=== PATIENT | female | born 1960 | race Caucasian/White ===

== ENCOUNTER 2018-04-29 00:54 | Observation (INO) ==
[2018-04-29] MEDS ORDERED: ASPIRIN 81 MG TAB.CHEW PO ONE (01:04)
[2018-04-29] MEDS ORDERED: NITROGLYCERIN 0.4 MG/TAB BTL SL ONE ×2 (01:22→02:09)
--- NOTE | 2018-04-29 01:24 | ERNOTE ---
Chest Pain/Cardiac HPI Date of Service: 04/29/18 Chief Complaint: Chest Pain Time Seen by Provider: 04/29/18 01:50 Source: patient Exam Limitations: clinical condition Immunizations: IMMUNIZATION HX Immunizations Up to Date Yes History of Influenza Vaccine Yes Hx Pneumococcal Vaccination More Information Required Allergies/Adverse Reactions: Allergies amoxicillin trihydrate [From Augmentin] Allergy (Intermediate, Verified 04/29/18 01:09) Itching potassium clavula *RETIRED-10/29/12 [From Augmentin] Allergy (Intermediate, Verified 04/29/18 01:09) Itching Home Medications: HOME MEDICATIONS Clopidogrel Bisulfate [Plavix] 75 mg PO DAILY 05/11/12 [Last Taken 04/28/18] HYDROcodone/ACETAMINOPHEN [[place] 5-325] 325 mg PO QID 05/11/12 [Last Taken 04/28/18 18:00] Atorvastatin Calcium [Lipitor] 80 mg PO HS 04/29/18 [Last Taken 04/28/18 21:00] Baclofen 10 mg PO TID 04/29/18 [Last Taken 04/28/18] Furosemide [Lasix] 20 mg PO DAILY 04/29/18 [Last Taken 04/28/18 08:00] Gabapentin 100 mg PO TID 04/29/18 [Last Taken 04/28/18] Lisinopril [Zestril] 2.5 mg PO DAILY 04/29/18 [Last Taken 04/28/18 08:00] Zolpidem Tartrate [Ambien] 12.5 mg PO HS 04/29/18 [Last Taken 04/28/18 21:00] metFORMIN HCL [Metformin HCl] 500 mg PO QID 04/29/18 [Last Taken 04/28/18] Narrative: 58 year old female presenting with chest pain, she does have a history of CAD she has had stents in [place]. States that she has 8/10 pain, diffusely across her chest, she is wheezy and tight. We administered Aspirin and Nitro. Date (Duration): 04/29/18 Time (Timing): 01:40 Timing: constant Severity/Quality: mild Location: substernal Chest Pain Radiation: no radiation Activities at Onset: none Modifying Factors - Worsens: Present: rest Nitro Today/Relief: 0.4 mg x 1 Aspirin Treatment Today: 81 mg x 1 Associated Symptoms: Present: denies symptoms Prior Chest Pain/Cardiac Workup: Reports: prior chest pain Prior Treatment: Denies: recently seen Review of Systems - Review of Systems Constitutional: Present: See HPI EYE: Present: no symptoms reported ENT: Present: no symptoms reported Respiratory: Present: shortness of breath, cough, wheezing Cardiology: Present: chest pain. Absent: syncope Gastrointestinal/Abdominal: Present: no symptoms reported Genitourinary: Present: no symptoms reported Musculoskeletal: Present: no symptoms reported Skin: Present: no symptoms reported Neurological: Present: no symptoms reported Endocrine: Present: no symptoms reported Hematologic/Lymphatic: Present: no symptoms reported Medical History (Last Reviewed 04/29/18 @ 01:52 by Daniella Simmons MD) History of COPD History of asthma History of heart attack History of high cholesterol History of hypertension History of type 2 diabetes mellitus Surgical History: Surgical History (Last Reviewed 04/29/18 @ 01:52 by Daniella Simmons MD) H/O heart artery stent Family History: Family History (Last Reviewed 04/29/18 @ 01:52 by Daniella Simmons MD) Brother Heart disease Social History: Preferred Language Argentine Do you have any mandaeism or No cultural preference? Smoking Status Current every day smoker Have you smoked in the past 12 Yes months Alcohol Use none Drug Use none No Social History Section defined Physical Exam - Physical Exam General Appearance: Present: wd/wn, alert, no apparent distress Head Exam: Present: normal inspection, no evidence of injury Eye Exam: Normal inspection: bilateral, PERRL: bilateral, EOMI: bilateral Ears, Nose, Throat: Present: normal ENT inspection, normal pharynx Neck: Present: normal inspection, nontender Respiratory: Present: chest nontender, decreased breath sounds, wheezing Cardiovascular/Chest: Present: regular rate, rhythm, no murmur, normal peripheral pulses Gastrointestinal/Abdominal: Present: normal bowel sounds, nontender, nondistended, soft, no organomegaly Back Exam: Present: normal inspection, normal range of motion, no CVA tenderness, no vertebral tenderness Extremity Exam: Present: normal inspection, non-tender, normal range of motion, no edema Neurological Exam: Present: alert, oriented, normal mood/affect, no motor/sensory deficits Skin Exam: Present: normal color, warm/dry Lymphatic Exam: Present: no adenopathy Progress - Results and Orders Patient's Lab Results:: I have reviewed the patient's lab results. - Vital Signs Patient's Vital Signs:: I have reviewed the patient's vital signs. Vital Signs: Vital Signs 04/29/18 01:06 04/29/18 01:19 04/29/18 01:20 Temperature 36.8 C Pulse Rate 115 H 109 H 115 H Respiratory Rate 14 19 Blood Pressure 127/64 112/56 O2 Sat by Pulse Oximetry 97 97 - EKG EKG #1 EKG: NSR, other EKG read: Interp. by mn - Sinus tachycardia rate of [address] or T wave changes, compared with old EKG - X-Ray X-Ray #1 X-Ray: chest - no acute change - Progress/Reassessment Chief Complaint: Chest Pain Plan - Plan Plan: patient continues to have mild pain in chest, discussed with Dr. Fritz, will admit for chest pain obs. Her COPD is not at baseline, I suspect her chest pain is worsened by her COPD. Will order nebs, and recheck troponin. CXR and EKG are negative for acute disease. Departure Clinical Impression: Chest pain - Departure Disposition: Still a patient Condition: Fair
[2018-04-29 01:34] LABS: Hematocrit 34.8 % (37.0-47.0); Hemoglobin 11.5 gm/dL (12.5-16.0); Mean Cell Volume 87.2 fl (78-100); Mean Corpuscular Hemoglobin 28.8 pg (27-31); Mean Platelet Volume 9.7 fl (8-12.5); Neutrophil # 4.2 K/mm3 (1.3-6.0); Neutrophil % 61.4 % (42-75.0); Platelet Count 241 K/mm3 (150-450); Red Blood Count 3.99 M/mm3 (4.2-5.4); Red Cell Distribution Width 13.2 % (11.5-14.0); White Blood Count 6.8 K/mm3 (4.0-10.5)
[2018-04-29] MEDS ORDERED: ALBUTEROL SULFATE/IPRATROPIUM 3 ML NEBU IH ONE ×2 (01:46→01:47)
[2018-04-29] MEDS ORDERED: METHYLPREDNISOLONE SOD SUCC/PF 40 MG/ML VIAL IV ONE (01:46)
[2018-04-29 01:56] LABS: ALT 31 U/L (19-67); AST 28 U/L (0-48); Albumin * 3.7 gm/dl (3.4-5.0); Alkaline Phosphatase * 82 U/L (50-170); Anion Gap 17.7 mmol/L (6.8-13.8); BUN/Creatinine Ratio 17.7 (9.0-21.6); Bilirubin, Total 0.2 mg/dL (0.0-1.1); Blood Urea Nitrogen 23 mg/dL (3-23); Calcium * 9.1 mg/dL (7.9-10.9); Carbon Dioxide 21.9 mmol/L (24-32.6); Chloride 102 mmol/L (97-106); Glucose * 355 mg/dL (70-110); Potassium 3.6 mmol/L (3.4-4.6); Sodium 138 mmol/L (132-142); Total Protein 7.2 gm/dL (6.2-8.2); Troponin I Less than 0.017 ng/mL (0.00-0.10)
[2018-04-29] MEDS ORDERED: MORPHINE SULFATE 10 MG/ML SYRG IM ONE (02:12)
[2018-04-29] MEDS ORDERED: METHYLPREDNISOLONE SOD SUCC/PF 40 MG/ML VIAL IM ONE (02:21)
[2018-04-29] MEDS ORDERED: METHYLPREDNISOLONE SOD SUCC/PF 125 MG/2 ML VIAL IM ONE (02:27)
[2018-04-29] MEDS ORDERED: ONDANSETRON HCL/PF 2 MG/ML VIAL IV ONE (03:25)
[2018-04-29] MEDS ORDERED: MORPHINE SULFATE 4 MG/ML SYRG IV ONE ×2 (03:32→05:31)
[2018-04-29] MEDS ORDERED: ALBUTEROL SULFATE/IPRATROPIUM 3 ML NEBU IH PRN (03:46)
[2018-04-29] MEDS ORDERED: diphenhydrAMINE HCL 50 MG CAPSULE PO PRN (05:31)
[2018-04-29] MEDS ORDERED: KETOROLAC TROMETHAMINE 30 MG/ML VIAL IV ONE (08:08)
[2018-04-29] MEDS ORDERED: BACLOFEN 10 MG TABLET PO SCH (10:10)
[2018-04-29] MEDS ORDERED: FUROSEMIDE 20 MG TABLET PO SCH (10:15)
[2018-04-29] MEDS ORDERED: CLOPIDOGREL BISULFATE 75 MG TABLET PO SCH (10:15)
[2018-04-29] MEDS ORDERED: LISINOPRIL 2.5 MG TABLET PO SCH (10:15)
--- NOTE | 2018-04-29 11:15 | HP ---
Chief Complaint - Chief Complaint Date of Service: 04/29/18 Time of Service: 10:30 Chief Complaint: Chest Pain History of Present Illness: Kalli is a 58 yo female that presents to the [facility] ER with chest pain. She has a history of CAD. She reports no precipitating cause to chest pain. She was not doing any physical activity at the time of symptoms. She presented to the ER and initial work up is negative for acute [place]. Troponin and EKG are within normal limits. Chest pain was not responsive to nitro or morphine. Medical History (Last Reviewed 04/29/18 @ 04:08 by Natalie Moreland RN) History of COPD History of asthma History of heart attack History of high cholesterol History of hypertension History of type 2 diabetes mellitus Surgical History: Surgical History (Last Updated 04/29/18 @ 04:08 by Natalie Moreland RN) H/O heart artery stent History of back surgery Family History: Family History (Last Reviewed 04/29/18 @ 04:08 by Natalie Moreland RN) Brother Heart disease Social History: Patient Lives/Resources Home Utilized Occupation Disabled Preferred Language Hebrew Do you have any protestant or No cultural preference? Smoking Status Current every day smoker Have you smoked in the past 12 Yes months Do you dip or chew tobacco No Alcohol Use none Drug Use none No Social History Section defined Review Of Systems (GEN) - Review of Systems Generalized/Overall Review: Absent: Weakness, Chills, Fever EENTM: Present: No Symptoms Reported Respiratory: Present: Cough, Shortness of Breath Cardiac: Present: Chest Pain. Absent: Edema, Palpitations Abdominal: Absent: Nausea, Vomiting, Abdominal Pain Genitourinary: Present: No Symptoms Reported Musculoskeletal: Present: No Symptoms Reported Neurological: Present: No Symptoms Reported Skin: Present: No Symptoms Reported Endocrine: Present: No Symptoms Reported Immunizations: IMMUNIZATION HX Immunizations Up to Date Yes History of Influenza Vaccine Yes Hx Pneumococcal Vaccination More Information Required Allergies/Adverse Reactions: Allergies Allergy/AdvReac Type Severity Reaction Status Date / Time amoxicillin trihydrate Allergy Intermediate Itching Verified 04/29/18 01:09 [From Augmentin] potassium clavula Allergy Intermediate Itching Verified 04/29/18 01:09 *RETIRED-10/29/12 [From Augmentin] Home Medications: HOME MEDICATIONS Clopidogrel Bisulfate [Plavix] 75 mg PO DAILY 05/11/12 [Last Taken 04/28/18] HYDROcodone/ACETAMINOPHEN [[place] 5-325] 325 mg PO QID 05/11/12 [Last Taken Unknown] Atorvastatin Calcium [Lipitor] 80 mg PO HS 04/29/18 [Last Taken 04/28/18 21:00] Baclofen 10 mg PO TID 04/29/18 [Last Taken 04/28/18] Furosemide [Lasix] 20 mg PO DAILY 04/29/18 [Last Taken 04/28/18 08:00] Gabapentin 100 mg PO TID 04/29/18 [Last Taken 04/28/18] Lisinopril [Zestril] 2.5 mg PO DAILY 04/29/18 [Last Taken 04/28/18 08:00] Zolpidem Tartrate [Ambien] 12.5 mg PO HS 04/29/18 [Last Taken 04/28/18 21:00] metFORMIN HCL [Metformin HCl] 500 mg PO QID 04/29/18 [Last Taken 04/28/18] predniSONE [Prednisone] 2 tab PO DAILY #14 tab 04/29/18 [Last Taken Unknown] Exam - Exam Vital Signs: Vital Signs - Last Taken Temp 36.8 C 04/29/18 10:14 Pulse 106 H 04/29/18 11:13 Resp 18 04/29/18 10:14 BP 100/58 04/29/18 11:13 Pulse Ox 94 04/29/18 10:14 Constitutional: Present: Alert, Oriented x3, Cooperative ENT Exam: Present: hearing grossly normal Eye Exam: bilateral eye: normal inspection Respiratory: Present: wheezing Cardiovascular/Chest: Present: regular rate, rhythm, no murmur Abdomen: Present: Normal bowel sounds, soft, nontender, nondistended, no rebound tenderness, no hepatospenomegaly Skin Exam: Present: normal color, warm/dry, no cyanosis Lymphatic: Present: no adenopathy Appearance: Present: appropriate appearance, appropriate insight Eye contact: Present: cooperative, good eye contact, normal speech Thoughts: Present: normal thought pattern, no apparent hallucination Diagnostic Studies: Abnormal Lab Results 04/29/18 04/29/18 Range/Units 01:30 01:30 RBC 3.99 L (4.2-5.4) M/mm3 Hgb 11.5 L (12.5-16.0) gm/dL Hct 34.8 L (37.0-47.0) % Carbon Dioxide 21.9 L (24-32.6) mmol/L Anion Gap 17.7 H (6.8-13.8) mmol/L Est GFR (Non-Af Amer) 45 L (60-130) mL/min Random Glucose 355 H (70-110) mg/dL Laboratory Results WBC 6.8 K/mm3 (4.0-10.5) 04/29/18 01:30 RBC 3.99 M/mm3 (4.2-5.4) L 04/29/18 01:30 Hgb 11.5 gm/dL (12.5-16.0) L 04/29/18 01:30 Hct 34.8 % (37.0-47.0) L 04/29/18 01:30 MCV 87.2 fl (78-100) 04/29/18 01:30 MCH 28.8 pg (27-31) 04/29/18 01:30 MCHC 33.0 g/dl (32-36) 04/29/18 01:30 RDW 13.2 % (11.5-14.0) 04/29/18 01:30 Plt Count 241 K/mm3 (150-450) 04/29/18 01:30 MPV 9.7 fl (8-12.5) 04/29/18 01:30 Immature Gran % (Auto) 0.10 % (0.001-0.429) 04/29/18 01:30 Immature Gran # (Auto) 0.01 K/mm3 (0.000-0.0310) 04/29/18 01:30 Neutrophils % 61.4 % (42-75.0) 04/29/18 01:30 Lymphocytes % 29.5 % (20-51) 04/29/18 01:30 Monocytes % 5.9 % (0.0-9) 04/29/18 01:30 Eosinophils % 2.5 % (0.0-3.0) 04/29/18 01:30 Basophils % 0.6 % (0.0-1.0) 04/29/18 01:30 Nucleated RBC % 0.0 k/mm3 (0-1) 04/29/18 01:30 Neutrophils # 4.2 K/mm3 (1.3-6.0) 04/29/18 01:30 Lymphocytes # 2.01 k/mm3 (1.5-3.5) 04/29/18 01:30 Monocytes # 0.4 k/mm3 (0.0-1.0) 04/29/18 01:30 Eosinophils # 0.2 k/mm3 (0.0-0.7) 04/29/18 01:30 Absolute Basophils 0.0 k/mm3 (0.0-0.1) 04/29/18 01:30 D-Dimer 0.44 ug/mL (0.19-0.49) 04/29/18 01:30 Sodium 138 mmol/L (132-142) 04/29/18 01:30 Plasma Sodium 142 mmol/L (130-142) 04/29/18 01:30 Potassium 3.6 mmol/L (3.4-4.6) 04/29/18 01:30 Chloride 102 mmol/L (97-106) 04/29/18 01:30 Carbon Dioxide 21.9 mmol/L (24-32.6) L 04/29/18 01:30 Anion Gap 17.7 mmol/L (6.8-13.8) H 04/29/18 01:30 BUN 23 mg/dL (3-23) 04/29/18 01:30 Creatinine 1.30 mg/dL (0.4-1.4) 04/29/18 01:30 Est GFR (Non-Af Amer) 45 mL/min (60-130) L 04/29/18 01:30 BUN/Creatinine Ratio 17.7 (9.0-21.6) 04/29/18 01:30 Random Glucose 355 mg/dL (70-110) H 04/29/18 01:30 Calcium 9.1 mg/dL (7.9-10.9) 04/29/18 01:30 Calcium Adj for Albumin 9.0 mg/dL (8.4-10.2) 04/29/18 01:30 Total Bilirubin 0.2 mg/dL (0.0-1.1) 04/29/18 01:30 AST 28 U/L (0-48) 04/29/18 01:30 ALT 31 U/L (19-67) 04/29/18 01:30 Alkaline Phosphatase 82 U/L (50-170) 04/29/18 01:30 Troponin I Less than 0.017 ng/mL (0.00-0.10) 04/29/18 07:28 B-Natriuretic Peptide 34 pg/mL (5-205) 04/29/18 02:00 Total Protein 7.2 gm/dL (6.2-8.2) 04/29/18 01:30 Albumin 3.7 gm/dl (3.4-5.0) 04/29/18 01:30 Assessment/Plan - Narrative Narrative: Kalli is a 58 yo female with Chest pain. Will admit to observation. Will place on telemetry and repeat serial troponins. Plan to discharge later today. - Assessment/Plan (1) Chest pain Problem: Acute Qualifiers: Chest pain type: unspecified Qualified Code(s): R07.9 - Chest pain, unsp ecified (2) CAD (coronary artery disease) Problem: Chronic Qualifiers: Coronary Disease-Associated Artery/Lesion type: unspecified vessel or lesion type [place] vs. transplanted heart: [place] heart Associated angina: without angina Qualified Code(s): I25.10 - Atherosclerotic heart disease of [place] coronary artery without angina pectoris (3) COPD (chronic obstructive pulmonary disease) Problem: Chronic Qualifiers: Chronic bronchitis type: unspecified
--- NOTE | 2018-04-29 11:29 | DS ---
(1) Chest pain Problem: Acute Qualifiers: Chest pain type: unspecified Qualified Code(s): R07.9 - Chest pain, unspecified (2) DMII (diabetes mellitus, type 2) Problem: Acute Qualifiers: Diabetes mellitus superintendent terminal insulin use: without fpc use Diabetes mellitus complication status: with unspecified complications Qualified Code(s): E11.8 - Type 2 diabetes mellitus with unspecified complications (3) CAD (coronary artery disease) Problem: Chronic Qualifiers: Coronary Disease-Associated Artery/Lesion type: unspecified vessel or lesion type [place] vs. transplanted heart: [place] heart Associated angina: without angina Qualified Code(s): I25.10 - Atherosclerotic heart disease of [place] coronary artery without angina pectoris (4) COPD (chronic obstructive pulmonary disease) Problem: Chronic Qualifiers: Chronic bronchitis type: unspecified (5) Asthma Problem: Chronic Qualifiers: Asthma severity: mild Asthma persistence: intermittent Asthma complication type: with acute exacerbation Qualified Code(s): J45.21 - Mild intermittent asthma with (acute) exacerbation (6) Eczema of both hands Problem: Acute Description of Stay: Kalli is a 58 yo female that was admitted with chest pain and a history of CAD, DMII, HTN. Initial work up was negative for acute [place]. She was admitted to observation. There was no evidence of myocardial injury on telemetry, troponins, or EKG. Chest pain was not responsive to nitro or morphine. It seemed to respond better to toradol and breathing treatments. I s uspect that it may be more related to lung inflammation from asthma or COPD. She has no significant shortness of breath or increased productive sputum. I feel she is ok for home discharge. She does have a severe flare of eczema on her hands. She reports this responds well to prednisone. I believe prednisone will also help the lung inflammation, so I will prescribe a burst of prednisone 40mg daily x 7 days. She is ok to be discharged to home. She requests a follow up with her Spring Inspector, Dr. Castillo, at [facility]. Procedures Performed: none Results and Findings: Lab Pending Results 04/29/18 01:30: WBC 6.8, RBC 3.99 L, Hgb 11.5 L, Hct 34.8 L, MCV 87.2, MCH 28.8, MCHC 33.0, RDW 13.2, Plt Count 241, MPV 9.7, Immature Gran % (Auto) 0.10, Immature Gran # (Auto) 0.01, Neutrophils % 61.4, Lymphocytes % 29.5, Monocytes % 5.9, Eosinophils % 2.5, Basophils % 0.6, Nucleated RBC % 0.0, Neutrophils # 4.2, Lymphocytes # 2.01, Monocytes # 0.4, Eosinophils # 0.2, Absolute Basophils 0.0 04/29/18 01:30: Sodium 138, Plasma Sodium 142, Potassium 3.6, Chloride 102, Carbon Dioxide 21.9 L, Anion Gap 17.7 H, BUN 23, Creatinine 1.30, Est GFR (Non- Af Amer) 45 L, BUN/Creatinine Ratio 17.7, Random Glucose 355 H, Calcium 9.1, Calcium Adj for Albumin 9.0, Total Bilirubin 0.2, AST 28, ALT 31, Alkaline Phosphatase 82, Troponin I Less than 0.017, Total Protein 7.2, Albumin 3.7 04/29/18 01:30: D-Dimer 0.44 04/29/18 02:00: B-Natriuretic Peptide 34 04/29/18 07:28: Troponin I Less than 0.017 Discharge Location: Home Disposition: Home self-care Condition: Good Discharge Activity: Activity as tolerated Discharge Diet: Consistent carbs, Low fat/chol Referrals: Zeus Castillo MD [Non Staff Physicians] - (Next available) Problem Oriented Discharge Instructions to Patient/Family: Chest Pain Observation Prescriptions (Any new or edited meds): predniSONE [Prednisone] 2 tab PO DAILY #14 tab Complete Home Medications List: Complete Home Medication List: Clopidogrel Bisulfate [Plavix] 75 mg PO DAILY 05/11/12 HYDROcodone/ACETAMINOPHEN [[place] 5-325] 325 mg PO QID 05/11/12 Atorvastatin Calcium [Lipitor] 80 mg PO HS 04/29/18 Baclofen 10 mg PO TID 04/29/18 Furosemide [Lasix] 20 mg PO DAILY 04/29/18 Gabapentin 100 mg PO TID 04/29/18 Lisinopril [Zestril] 2.5 mg PO DAILY 04/29/18 Zolpidem Tartrate [Ambien] 12.5 mg PO HS 04/29/18 metFORMIN HCL [Metformin HCl] 500 mg PO QID 04/29/18 predniSONE [Prednisone] 2 tab PO DAILY #14 tab 04/29/18
[2018-04-29] MEDS ORDERED: HYDROcodone/ACETAMINOPHEN 1 EACH TABLET PO ONE (11:30)
[2018-04-29] MEDS ORDERED: GABAPENTIN 100 MG CAPSULE PO SCH (13:00)
[2018-04-29] MEDS ORDERED: HYDROcodone/ACETAMINOPHEN 1 EACH TABLET PO SCH ×2 (13:00→17:00)
[2018-04-29] MEDS ORDERED: metFORMIN HCL 500 MG TABLET PO SCH (13:00)
[2018-04-29 13:55] VITALS: BP 118/78
[2018-04-29] MEDS ORDERED: ZOLPIDEM TARTRATE 10 MG TABLET PO SCH (21:00)
[2018-04-29] MEDS ORDERED: ROSUVASTATIN CALCIUM 20 MG TABLET PO SCH (21:00)
== END 2018-04-29 12:15 | disposition home or self-care (01) ==
LOC: ER 00:54 → MS 00:54
PROVIDERS: ADMIT Family Medicine; ATTEND Family Medicine
CPT/HCPCS: 36415; 71020; 71046; 80053; 83519; 83880; 84484; 85025; 85379; 93005; 94640; 94664; 96372; 96374; 96375; 99285; G0378; J2405

== ENCOUNTER 2019-02-02 18:31 | Observation (INO) ==
[2019-02-02] MEDS ORDERED: ALBUTEROL SULFATE/IPRATROPIUM 3 ML NEBU IH ONE (18:41)
[2019-02-02] MEDS ORDERED: METHYLPREDNISOLONE SOD SUCC/PF 125 MG/2 ML VIAL IV ONE (18:43)
--- NOTE | 2019-02-02 18:52 | ERNOTE ---
Dyspnea - Date Date of Service: 02/02/19 - General Presenting Symptoms: shortness of breath, difficulty of breathing, wheezing Time Seen by Provider: 02/02/19 18:38 Source: patient, family Exam Limitations: no limitations - Immun/Allergies/Home Medications Immunizations: IMMUNIZATION HX Immunizations Up to Date Yes History of Influenza Vaccine Yes Hx Pneumococcal Vaccination More Information Required Allergies/Adverse Reactions: Allergies amoxicillin trihydrate [From Augmentin] Allergy (Intermediate, Verified 02/02/19 18:42) Itching potassium clavula *RETIRED-10/29/12 [From Augmentin] Allergy (Intermediate, Verified 02/02/19 18:42) Itching Home Medications: HOME MEDICATIONS Clopidogrel Bisulfate [Plavix] 75 mg PO DAILY 05/11/12 [Last Taken 04/28/18] HYDROcodone/ACETAMINOPHEN [[place] 5-325] 1 tab PO QID 05/11/12 [Last Taken Unknown] Atorvastatin Calcium [Lipitor] 80 mg PO HS 04/29/18 [Last Taken 04/28/18 21:00] Baclofen 10 mg PO TID 04/29/18 [Last Taken 04/28/18] Furosemide [Lasix] 20 mg PO DAILY 04/29/18 [Last Taken 04/28/18 08:00] Gabapentin 100 mg PO TID 04/29/18 [Last Taken 04/28/18] Lisinopril [Zestril] 2.5 mg PO DAILY 04/29/18 [Last Taken 04/28/18 08:00] metFORMIN HCL [Metformin HCl] 1,000 mg PO QID 04/29/18 [Last Taken 04/28/18] Amitriptyline HCl [Elavil] 10 mg PO HS 02/02/19 [Last Taken Unknown] Insulin Aspart [Novolog] 1 units SC PRN PRN 02/02/19 [Last Taken Unknown] Insulin Glargine,Hum.rec.anlog [Lantus] 16 units SC HS 02/02/19 [Last Taken Unknown] Insulin Glargine,Hum.rec.anlog [Lantus] 43 units SC QAM 02/02/19 [Last Taken Unknown] - History of Present Illness Narrative: patientpresents to ed with acute exacerbation of copd for last several days Severity: severe Treatment FILM WRITER: by patient, albuterol Initiating event: Reports: upper resp illness Frequency of episodes: Reports: frequent episodes, chronic episodes Modifying Factors - (Improves): Reports: albuterol Modifying Factors (Worsens): Reports: coughing Associated Symptoms-Dyspnea: Reports: lightheadedness, weakness Prior Treatment: Reports: recently seen Review of Systems - Review of Systems Constitutional: Present: See HPI EYE: Present: no symptoms reported ENT: Present: no symptoms reported Respiratory: Present: See HPI, shortness of breath, cough Cardiology: Present: no symptoms reported Gastrointestinal/Abdominal: Present: no symptoms reported Genitourinary: Present: no symptoms reported Musculoskeletal: Present: no symptoms reported Skin: Present: no symptoms reported Neurological: Present: no symptoms reported Endocrine: Present: no symptoms reported Medical History (Last Reviewed 02/02/19 @ 18:59 by Dayanna Valente RN) History of COPD History of asthma History of heart attack History of high cholesterol History of hypertension History of type 2 diabetes mellitus Surgical History: Surgical History (Last Reviewed 02/02/19 @ 18:59 by Dayanna Valente RN) H/O heart artery stent History of back surgery Family History: Family History (Last Reviewed 02/02/19 @ 18:59 by Dayanna Valente RN) Brother Heart disease Social History: (Last Reviewed 02/02/19 @ 18:59 by Dayanna Valente RN) Tobacco: Smoking Status: Current every day smoker Physical Exam - Physical Exam General Appearance: Present: moderate distress, severe distress Head Exam: Present: normal inspection, no evidence of injury Ears, Nose, Throat: Present: normal ENT inspection, normal pharynx Neck: Present: normal inspection, nontender Respiratory: Present: chest tenderness, respiratory distress, accessory muscle use Cardiovascular/Chest: Present: tachycardia Peripheral Pulses: N=norm/S=strong/W=weak/B=bound/A=absent: Carotid (R): Normal, Carotid (L): Normal, Radial (R): Normal, Radial (L): Normal, Femoral (R): Normal, Femoral (L): Normal, Dorsalis-pedis (R): Normal, Dorsalis-pedis (L): Normal Gastrointestinal/Abdominal: Present: normal bowel sounds, nontender, nondistended, soft, no organomegaly Back Exam: Present: normal inspection, normal range of motion, no CVA tenderness, no vertebral tenderness Extremity Exam: Present: normal inspection, non-tender, normal range of motion, no edema Neurological Exam: Present: alert, oriented, normal mood/affect, no motor/sensory deficits Skin Exam: Present: normal color, warm/dry Lymphatic Exam: Present: no adenopathy Progress - Date and Time Seen: Date and Time: 02/02/19 20:58 patient improved somewhat , still sob with wheezing, labs and x-rays reviewed with dr elena, accepted for admission - Results and Orders Patient's Lab Results:: I have reviewed the patient's lab results. - Vital Signs Patient's Vital Signs:: I have reviewed the patient's vital signs. Vital Signs: Vital Signs 02/02/19 18:37 Temperature 36.9 C Pulse Rate 126 H Respiratory Rate 28 H Blood Pressure 157/89 H O2 Sat by Pulse Oximetry 95 - EKG EKG #1 EKG: NSR - X-Ray X-Ray #1 X-Ray: chest Interpretation: Interp. by ma - copd - Progress/Reassessment Chief Complaint: Dyspnea Plan - Plan Plan: to admit to observation Departure Clinical Impression: COPD (chronic obstructive pulmonary disease) - Departure Disposition: Still a patient Condition: Serious
[2019-02-02 19:09] LABS: Hematocrit 34.9 % (37.0-47.0); Hemoglobin 11.7 gm/dL (12.5-16.0); Mean Cell Volume 87.5 fl (78-100); Mean Corpuscular Hemoglobin 29.3 pg (27-31); Mean Corpuscular Hgb Conc 33.5 g/dl (32-36); Mean Platelet Volume 9.3 fl (8-12.5); Neutrophil # 7.8 K/mm3 (1.3-6.0); Neutrophil % 72.9 % (42-75.0); Platelet Count 263 K/mm3 (150-450); Red Blood Count 3.99 M/mm3 (4.2-5.4); Red Cell Distribution Width 13.2 % (11.5-14.0); White Blood Count 10.7 K/mm3 (4.0-10.5)
[2019-02-02 19:25] LABS: ALT 40 U/L (19-67); AST 33 U/L (0-48); Alkaline Phosphatase * 97 U/L (50-170); Anion Gap 17.4 mmol/L (6.8-13.8); BNP * 466 pg/mL (5-205); BUN/Creatinine Ratio 9.1 (9.0-21.6); Bilirubin, Total 0.3 mg/dL (0.0-1.1); Blood Urea Nitrogen 11 mg/dL (3-23); Calcium * 9.3 mg/dL (7.9-10.9); Carbon Dioxide 24.5 mmol/L (24-32.6); Chloride 101 mmol/L (97-106); Glucose * 142 mg/dL (70-110); Potassium 3.9 mmol/L (3.4-4.6); Sodium 139 mmol/L (132-142); Total Protein 7.5 gm/dL (6.2-8.2); Troponin I Less than 0.017 ng/mL (0.00-0.10)
[2019-02-02 19:38] LABS: Urine Appearance Clear (CLEAR); Urine Bilirubin Negative (NEGATIVE); Urine Blood Negative /ul (NEGATIVE); Urine Color Yellow; Urine Ketone Negative (NEGATIVE)
[2019-02-02 19:39] LABS: Urine Bacteria None Seen; Urine Nitrite Negative (NEGATIVE); Urine Protein Negative (NEGATIVE); Urine RBC None Seen /hpf (0-5); Urine Urobilinogen Normal (NORMAL); Urine WBC None Seen /hpf (0-5); Urine pH 5.5 pH (5.0-7.0)
[2019-02-02] MEDS ORDERED: ALBUTEROL SULFATE 2.5 MG/0.5 ML VIAL.NEB IH ONE (19:41)
[2019-02-02] MEDS ORDERED: ACETAMINOPHEN 325 MG TABLET PO ONE (20:12)
[2019-02-02] MEDS ORDERED: ONDANSETRON HCL/PF 2 MG/ML VIAL IV ONE (21:06)
[2019-02-02] MEDS ORDERED: ALBUTEROL SULFATE 2.5 MG/0.5 ML VIAL.NEB IH PRN (21:08)
[2019-02-02] MEDS ORDERED: LEVOFLOXACIN IN DEXTROSE 5 % 500 MG/100 ML BAG IV SCH (21:15)
[2019-02-02] MEDS ORDERED: KETOROLAC TROMETHAMINE 30 MG/ML VIAL IV ONE (21:28)
[2019-02-02] MEDS ORDERED: diphenhydrAMINE HCL 50 MG/ML VIAL IV ONE (22:22)
[2019-02-02] MEDS ORDERED: ACETAMINOPHEN 500 MG TABLET PO PRN (23:29)
[2019-02-02] MEDS: HYDROcodone/ACETAMINOPHEN 1 EACH TABLET PO PRN (23:41)
[2019-02-02] MEDS: METHYLPREDNISOLONE SOD SUCC/PF 125 MG/2 ML VIAL IV SCH (23:42)
[2019-02-03] MEDS: HYDROcodone/ACETAMINOPHEN 1 EACH TABLET PO PRN (05:46)
[2019-02-03] MEDS: METHYLPREDNISOLONE SOD SUCC/PF 125 MG/2 ML VIAL IV SCH (05:47)
--- NOTE | 2019-02-03 11:34 | HPDIS ---
Chief Complaint - Chief Complaint Date of Service: 02/03/19 Time of Service: 08:30 Chief Complaint: Shortness of breath History of Present Illness: Kalli is a 58 yo female that presented to the [facility] ER with shortness of breath. She reports gradually worsening shortness of breath over the last few days. No fever, chills, nausea, or vomiting. She has a known history of COPD. She denies sick contacts but admits to environmental allergies. She also gets eczema and has been on prednisone for this periodically, but not recently. In the ER she was given breathing treatments and IV steroids. She was admitted to observation and at the time of my evaluation she reports feeling well and would like to go home. She reports her breathing is near her baseline and she has no concerns at this time. Medical History (Last Reviewed 02/02/19 @ 22:16 by Dominique Root RN) History of COPD History of asthma History of heart attack History of high cholesterol History of hypertension History of type 2 diabetes mellitus Surgical History: Surgical History (Last Reviewed 02/02/19 @ 22:16 by Dominique Root RN) H/O heart artery stent History of back surgery Family History: Family History (Last Reviewed 02/02/19 @ 22:16 by Dominique Root RN) Brother Heart disease Social History: (Last Reviewed 02/02/19 @ 22:16 by Dominique Root RN) Tobacco: Smoking Status: Current every day smoker Review Of Systems (GEN) - Review of Systems Generalized/Overall Review: Absent: Weakness, Chills, Fever EENTM: Absent: No Symptoms Reported Respiratory: Present: Cough, Shortness of Breath, Wheezing Cardiac: Absent: Chest Pain, Edema, Palpitations Abdominal: Absent: Nausea, Vomiting Genitourinary: Present: No Symptoms Reported Musculoskeletal: Present: No Symptoms Reported Neurological: Present: No Symptoms Reported Skin: Present: Rash Immunizations: IMMUNIZATION HX Immunizations Up to Date Yes History of Influenza Vaccine Yes Hx Pneumococcal Vaccination More Information Required Allergies/Adverse Reactions: Allergies Allergy/AdvReac Type Severity Reaction Status Date / Time amoxicillin trihydrate Allergy Intermediate Itching Verified 02/02/19 18:42 [From Augmentin] potassium clavula Allergy Intermediate Itching Verified 02/02/19 18:42 *RETIRED-10/29/12 [From Augmentin] Home Medications: HOME MEDICATIONS Clopidogrel Bisulfate [Plavix] 75 mg PO DAILY 05/11/12 [Last Taken 04/28/18] HYDROcodone/ACETAMINOPHEN [Hydes 5-325] 1 tab PO QID 05/11/12 [Last Taken Unknown] Atorvastatin Calcium [Lipitor] 80 mg PO HS 04/29/18 [Last Taken 04/28/18 21:00] Baclofen 10 mg PO TID 04/29/18 [Last Taken 04/28/18] Furosemide [Lasix] 20 mg PO DAILY 04/29/18 [Last Taken 04/28/18 08:00] Gabapentin 100 mg PO TID 04/29/18 [Last Taken 04/28/18] Lisinopril [Zestril] 2.5 mg PO DAILY 04/29/18 [Last Taken 04/28/18 08:00] metFORMIN HCL [Metformin HCl] 1,000 mg PO BID 04/29/18 [Last Taken 04/28/18] Amitriptyline HCl [Elavil] 10 mg PO HS 02/02/19 [Last Taken Unknown] Insulin Aspart [Novolog] 1 units SC PRN PRN 02/02/19 [Last Taken Unknown] Insulin Glargine,Hum.rec.anlog [Lantus] 16 units SC HS 02/02/19 [Last Taken Unknown] Insulin Glargine,Hum.rec.anlog [Lantus] 43 units SC QAM 02/02/19 [Last Taken Unknown] Azithromycin [Zithromax] 500 mg PO NOW #6 tab 02/03/19 [Last Taken Unknown] predniSONE [Prednisone] 2 tab PO DAILY #14 tab 02/03/19 [Last Taken Unknown] Exam - Exam Vital Signs: Vital Signs - Last Taken Temp 37 C 02/03/19 10:30 Pulse 111 H 02/03/19 10:30 Resp 21 H 02/03/19 10:30 BP 119/79 02/03/19 10:30 Pulse Ox 97 02/03/19 10:30 Constitutional: Present: Alert, Oriented x3, Cooperative ENT Exam: Present: hearing grossly normal Eye Exam: bilateral eye: normal inspection Respiratory: Present: no respiratory distress, wheezing Cardiovascular/Chest: Present: regular rate, rhythm, no edema, no murmur Peripheral Pulses: radial (R): 2+, radial (L): 2+ Abdomen: Present: Normal bowel sounds, soft, nontender, nondistended Skin Exam: Present: skin rash - dry scale to bilateral palms Appearance: Present: appropriate appearance, appropriate insight Eye contact: Present: cooperative, good eye contact, normal speech Thoughts: Present: normal thought pattern, no apparent hallucination Diagnostic Studies: Abnormal Lab Results 02/02/19 02/02/19 02/02/19 Range/Units 18:52 18:52 19:05 WBC 10.7 H (4.0-10.5) K/mm3 RBC 3.99 L (4.2-5.4) M/mm3 Hgb 11.7 L (12.5-16.0) gm/dL Hct 34.9 L (37.0-47.0) % Immature Gran % (Auto) 0.50 H (0.001-0.429) % Immature Gran # (Auto) 0.05 H (0.000-0.0310) K/mm3 Lymphocytes % 18.0 L (20-51) % Neutrophils # 7.8 H (1.3-6.0) K/mm3 pCO2 31.7 L (32.0-45.0) mmHg pO2 78.5 L (83.0-108.0) mmHg ABG pH 7.46 H (7.35-7.45) Anion Gap 17.4 H (6.8-13.8) mmol/L Est GFR (Non-Af Amer) 48 L (60-130) mL/min Random Glucose 142 H (70-110) mg/dL B-Natriuretic Peptide 466 H (5-205) pg/mL Laboratory Results WBC 10.7 K/mm3 (4.0-10.5) H 02/02/19 18:52 RBC 3.99 M/mm3 (4.2-5.4) L 02/02/19 18:52 Hgb 11.7 gm/dL (12.5-16.0) L 02/02/19 18:52 Hct 34.9 % (37.0-47.0) L 02/02/19 18:52 MCV 87.5 fl (78-100) 02/02/19 18:52 MCH 29.3 pg (27-31) 02/02/19 18:52 MCHC 33.5 g/dl (32-36) 02/02/19 18:52 RDW 13.2 % (11.5-14.0) 02/02/19 18:52 Plt Count 263 K/mm3 (150-450) 02/02/19 18:52 MPV 9.3 fl (8-12.5) 02/02/19 18:52 Immature Gran % (Auto) 0.50 % (0.001-0.429) H 02/02/19 18:52 Immature Gran # (Auto) 0.05 K/mm3 (0.000-0.0310) H 02/02/19 18:52 Neutrophils % 72.9 % (42-75.0) 02/02/19 18:52 Lymphocytes % 18.0 % (20-51) L 02/02/19 18:52 Monocytes % 5.3 % (0.0-9) 02/02/19 18:52 Eosinophils % 2.8 % (0.0-3.0) 02/02/19 18:52 Basophils % 0.5 % (0.0-1.0) 02/02/19 18:52 Nucleated RBC % 0.0 k/mm3 (0-1) 02/02/19 18:52 Neutrophils # 7.8 K/mm3 (1.3-6.0) H 02/02/19 18:52 Lymphocytes # 1.93 k/mm3 (1.5-3.5) 02/02/19 18:52 Monocytes # 0.6 k/mm3 (0.0-1.0) 02/02/19 18:52 Eosinophils # 0.3 k/mm3 (0.0-0.7) 02/02/19 18:52 Absolute Basophils 0.1 k/mm3 (0.0-0.1) 02/02/19 18:52 pCO2 31.7 mmHg (32.0-45.0) L 02/02/19 19:05 pO2 78.5 mmHg (83.0-108.0) L 02/02/19 19:05 HCO3 22.2 mmol/L (21.0-28.0) 02/02/19 19:05 Total CO2 23.2 mmol/L (19.0-24.0) 02/02/19 19:05 Base Excess -0.8 mmol/L (-2.0-3.0) 02/02/19 19:05 ABG pH 7.46 (7.35-7.45) H 02/02/19 19:05 ABG O2 Sat (Measured) 96.4 % (94.0-98.0) 02/02/19 19:05 Sodium 139 mmol/L (132-142) 02/02/19 18:52 Plasma Sodium 140 mmol/L (130-142) 02/02/19 18:52 Potassium 3.9 mmol/L (3.4-4.6) 02/02/19 18:52 Chloride 101 mmol/L (97-106) 02/02/19 18:52 Carbon Dioxide 24.5 mmol/L (24-32.6) 02/02/19 18:52 Anion Gap 17.4 mmol/L (6.8-13.8) H 02/02/19 18:52 BUN 11 mg/dL (3-23) D 02/02/19 18:52 Creatinine 1.21 mg/dL (0.4-1.4) 02/02/19 18:52 Est GFR (Non-Af Amer) 48 mL/min (60-130) L 02/02/19 18:52 BUN/Creatinine Ratio 9.1 (9.0-21.6) 02/02/19 18:52 Random Glucose 142 mg/dL (70-110) H 02/02/19 18:52 Calcium 9.3 mg/dL (7.9-10.9) 02/02/19 18:52 Calcium Adj for Albumin 9.0 mg/dL (8.4-10.2) 02/02/19 18:52 Total Bilirubin 0.3 mg/dL (0.0-1.1) 02/02/19 18:52 AST 33 U/L (0-48) 02/02/19 18:52 ALT 40 U/L (19-67) 02/02/19 18:52 Alkaline Phosphatase 97 U/L (50-170) 02/02/19 18:52 Troponin I Less than 0.017 ng/mL (0.00-0.10) 02/02/19 18:52 B-Natriuretic Peptide 466 pg/mL (5-205) H 02/02/19 18:52 Total Protein 7.5 gm/dL (6.2-8.2) 02/02/19 18:52 Albumin 4.0 gm/dl (3.4-5.0) 02/02/19 18:52 Urine Color Yellow 02/02/19 19:19 Urine Appearance Clear (CLEAR) 02/02/19 19:19 Urine pH 5.5 pH (5.0-7.0) 02/02/19 19:19 Ur Specific [place] 1.010 SP.GR. (1.005-1.010) 02/02/19 19:19 Urine Protein Negative mg/dL (NEGATIVE) 02/02/19 19:19 Urine Glucose (UA) Negative mg/dL (NEGATIVE) 02/02/19 19:19 Urine Ketones Negative mg/dL (NEGATIVE) 02/02/19 19: Urine Blood Negative /ul (NEGATIVE) 02/02/19 19: Urine Nitrate Negative (NEGATIVE) 02/02/19 19:19 Urine Bilirubin Negative mg/dl (NEGATIVE) 02/02/19 19:19 Urine Urobilinogen Normal EU/dl (NORMAL) 02/02/19 19:19 Ur Leukocyte Esterase Negative /ul (NEGATIVE) 02/02/19 19:19 Urine RBC None seen /hpf (0-5) 02/02/19 19:19 Urine WBC None seen /hpf (0-5) 02/02/19 19:19 Ur Epithelial Cells None seen /hpf (0-5) 02/02/19 19:19 Urine Bacteria None seen (NONE) 02/02/19 19:19 Urine Culture Comments No culture indicated 02/02/19 19:19 Assessment/Plan - Narrative Narrative: Kalli is a 58 yo female with COPD exacerbation. She will be admitted to observation as she has no respiratory failure and no evidence of significant infection. Will monitor how she reponds to the IV steroids given in the ER. She has done well overnight and feels able to be discharged to home. 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 She was given IV solumedrol and breathing treatments. She did well overnight and feels ready for home. Will plan to discharge to home and continue on prednisone 40mg for a week and a zpak. She will follow up with her PCP. Procedures Performed: none Results and Findings: Lab Pending Results 02/02/19 18:52: WBC 10.7 H, RBC 3.99 L, Hgb 11.7 L, Hct 34.9 L, MCV 87.5, MCH 29.3, MCHC 33.5, RDW 13.2, Plt Count 263, MPV 9.3, Immature Gran % (Auto) 0.50 H, Immature Gran # (Auto) 0.05 H, Neutrophils % 72.9, Lymphocytes % 18.0 L, Monocytes % 5.3, Eosinophils % 2.8, Basophils % 0.5, Nucleated RBC % 0.0, Neutrophils # 7.8 H, Lymphocytes # 1.93, Monocytes # 0.6, Eosinophils # 0.3, Absolute Basophils 0.1 02/02/19 18:52: Sodium 139, Plasma Sodium 140, Potassium 3.9, Chloride 101, Carbon Dioxide 24.5, Anion Gap 17.4 H, BUN 11 D, Creatinine 1.21, Est GFR (Non- Af Amer) 48 L, BUN/Creatinine Ratio 9.1, Random Glucose 142 H, Calcium 9.3, Calcium Adj for Albumin 9.0, Total Bilirubin 0.3, AST 33, ALT 40, Alkaline Phosphatase 97, Troponin I Less than 0.017, B-Natriuretic Peptide 466 H, Total Protein 7.5, Albumin 4.0 02/02/19 19:05: pCO2 31.7 L, pO2 78.5 L, HCO3 22.2, Total CO2 23.2, Base Excess -0.8, ABG pH 7.46 H, ABG O2 Sat (Measured) 96.4 02/02/19 19:19: Urine Color Yellow, Urine Appearance Clear, Urine pH 5.5, Ur Specific [place] 1.010, Urine Protein Negative, Urine Glucose (UA) Negative, Urine Ketones Negative, Urine Blood Negative, Urine Nitrate Negative, Urine Bilirubin Negative, Urine Urobilinogen Normal, Ur Leukocyte Esterase Negative, Urine RBC None seen, Urine WBC None seen, Ur Epithelial Cells None seen, Urine Bacteria None seen, Urine Culture Comments No culture indicated Discharge Location: Home Disposition: Home self-care Condition: Serious Discharge Activity: Activity as tolerated Discharge Diet: Consistent carbs Referrals: [facility] [Non Staff Physicians] - (Follow up with PCP tomorrow as scheduled.) Problem Oriented Discharge Instructions to Patient/Family: Chronic Obstructive Pulmonary Disease Exacerbation, [id number] Prescriptions (Any new or edited meds): predniSONE [Prednisone] 2 tab PO DAILY #14 tab Transmission Status: Pending to [id number] Azithromycin [Zithromax] 500 mg PO NOW #6 tab Transmission Status: Pending to [id number] Complete Home Medications List: Complete Home Medication List: Clopidogrel Bisulfate [Plavix] 75 mg PO DAILY 05/11/12 HYDROcodone/ACETAMINOPHEN [Hydes 5-325] 1 tab PO QID 05/11/12 Atorvastatin Calcium [Lipitor] 80 mg PO HS 04/29/18 Baclofen 10 mg PO TID 04/29/18 Furosemide [Lasix] 20 mg PO DAILY 04/29/18 Gabapentin 100 mg PO TID 04/29/18 Lisinopril [Zestril] 2.5 mg PO DAILY 04/29/18 metFORMIN HCL [Metformin HCl] 1,000 mg PO BID 04/29/18 Amitriptyline HCl [Elavil] 10 mg PO HS 02/02/19 Insulin Aspart [Novolog] 1 units SC PRN PRN 02/02/19 Insulin Glargine,Hum.rec.anlog [Lantus] 16 units SC HS 02/02/19 Insulin Glargine,Hum.rec.anlog [Lantus] 43 units SC QAM 02/02/19 Azithromycin [Zithromax] 500 mg PO NOW #6 tab 02/03/19 predniSONE [Prednisone] 2 tab PO DAILY #14 tab 02/03/19
[2019-02-03 12:30] VITALS: BP 127/73
== END 2019-02-03 12:41 | disposition home or self-care (01) ==
LOC: ER 18:31 → MS 18:31
PROVIDERS: ADMIT Family Medicine; ATTEND Family Medicine
DX: J44.1 Chronic obstructive pulmonary disease with (acute) exacerbation; E11.9 Type 2 diabetes mellitus without complications; L30.9 Dermatitis, unspecified
CPT/HCPCS: 36415; 36600; 71020; 71046; 80053; 81001; 82803; 83519; 83880; 84484; 85025; 87040; 93005; 94640; 94664; 94760; 96365; 96375; 99285; G0378; J2405